=== PATIENT | female | born 1995 | race Hispanic/Latino ===

== ENCOUNTER 2019-09-13 02:08 | Emergency (ER) | payer SELFPAY ==
[~2019-09-13] VITALS: Ht 160 cm; Wt 102.1 kg
[~2019-09-13 02:08] MED LIST: BIRTH CONTROL; DIFLUNISAL500 MG PO; ORPHENADRINE C100 MG PO
[2019-09-13 03:49] LABS: BILIRUBIN,URINE NEGATIVE (NEGATIVE); CLARITY,URINE CLEAR (CLEAR); COLOR,URINE YELLOW (YELLOW); KETONES,URINE NEGATIVE (NEGATIVE); LEUKOCYTE ESTERASE ,URINE NEGATIVE (NEGATIVE); NITRITE,URINE NEGATIVE (NEGATIVE); PROTEIN,URINE DIPSTICK NEGATIVE (NEGATIVE); URINE UROBILINOGEN 0.2 mg/dL (0.2 - 1)
[2019-09-13 03:54] LABS: BACTERIA,URINE MODERATE /HPF
[2019-09-13 03:55] LABS: EPITHELIAL CELLS,URINE FEW /LPF
[2019-09-13 04:27] LABS: BASOPHILS % 0.4 % (0.0-1.0); EOSINOPHILS # (AUTO) 0.2 (0.0-0.4); EOSINOPHILS % 1.6 % (0.0-6.0); HEMATOCRIT 41.1 % (34.2-44.1); HEMOGLOBIN 13.5 g/dL (12.0-16.0); LYMPHOCYTES # (AUTO) 2.6 (1.0-3.2); LYMPHOCYTES % 23.8 % (18.0-39.1); MEAN CORPUSCULAR HEMOGLOBIN 28.2 pg (28-32); MEAN CORPUSCULAR HGB CONC 32.8 g/dL (31-35); MEAN CORPUSCULAR VOLUME 85.8 fL (81-99); MONOCYTES # (AUTO) 0.7 (0.2-0.8); MONOCYTES % 6.4 % (4.4-11.3); NEUTROPHILS # (AUTO) 7.4 (2.1-6.9); NEUTROPHILS % 67.6 % (38.7-80.0); PLATELET COUNT 305 x10e3/uL (140-360); RED BLOOD COUNT 4.79 x10e6/uL (3.6-5.1); RED CELL DISTRIBUTION WIDTH 13.2 % (11.7-14.4)
--- NOTE | 2019-09-13 04:29 | Diagnostic Imaging Report ---
EXAM: First Trimester Obstetric Pelvic Ultrasound INDICATION: ^RLQ PAIN EVAL FOR ECTOPIC ^[id number] ^0324 ^Y COMPARISON: None TECHNIQUE: Grayscale transverse and sagittal transvaginal images were obtained of the pelvis. CLINICAL HISTORY: 24 year old A0 Last menstrual period: 07/22/2019 Clinical gestational age: 7 weeks and 4 days FINDINGS: Uterus: Orientation: Normal Size: 7.2 x 3.9 x 5.1 cm, enlarged Mass: None Cervix: Normal Sac like structure within endometrium without yolk sac or pole. Measurements correspond to 5 weeks and 3 days gestational age. Right ovary Size: 3.3 x2 x 2.1 cm Mass/Cyst: None Left ovary Size: 2.7 x 1.9 x 2.1 cm Mass/Cyst: None Cul-de-sac: No free fluid IMPRESSION: Saclike structure within endometrium without yolk sac or pole to prove intrauterine . Therefore, differential remains early , ectopic , nonviable/anembryonic , and miscarriage. Recommend correlation with serial beta-hCG and short-term follow-up ultrasound. Signed by: Dr. Adriano Church MD on 09/13/2019 4:26 AM
[2019-09-13 05:02] LABS: ANION GAP 16.1 mmol/L (8-16); BLOOD UREA NITROGEN 12 mg/dL (7-26); BUN/CREATININE RATIO 17 (6-25); CALCIUM 9.7 mg/dL (8.4-10.2); CARBON DIOXIDE 20 mmol/L (22-29); CHLORIDE 103 mmol/L (98-107); CREATININE, SERUM 0.71 mg/dL (0.57-1.11); EST GLOMERULAR FILTRATION RATE > 60 ML/MIN (60-); GLUCOSE 104 mg/dL (74-118); POTASSIUM 3.1 mmol/L (3.5-5.1); SODIUM 136 mmol/L (136-145)
[2019-09-13 05:36] VITALS: BP 133/84
--- OUTSIDE RECORDS SUMMARY | 2019-09-16 13:03 | XMS REPORT ---
[facility] Address Unknown Phone Unavailable Care Team Providers Care Corporate Webmaster Name Role Phone Kirk CUMMINGS Unavailable Unavailable Problems This patient has no known problems. Allergies, Adverse Reactions, Alerts This patient has no known allergies or adverse reactions. Medications This patient has no known medications. Results Test Description Test Time Test Comments Text Results Atomic Results Result Comments US OB TRANSVAG TRI SINGLE 2019-09-13 04:21:00 [place] [address] Patient Name: PARMJIT BADILLO MR #: [id number] : 1995 Age/Sex: 24/F Req #: [id number] Adm Physician: Ordered by: CORNELIA CUMMINGS MD Report #: [id number] Location: ER Room/Bed: Procedure: [id number] US/US OB TRANSVAG TRI SINGLE Exam Date: 09/13/19 Exam Time: 323 REPORT STATUS: Signed EXAM: First Trimester Obstetric Pelvic Ultrasound INDICATION: RLQ PAIN EVAL FOR ECTOPIC [id number] 0324 Y COMPARISON: None TECHNIQUE: Grayscale transverse and sagittal transvaginal images were obtained of the pelvis. CLINICAL HISTORY: 24 year old A0 Last menstrual period: 07/22/2019 Clinical gestational age: 7 weeks and 4 days FINDINGS: Uterus: Orientation: Normal Size: 7.2 x 3.9 x 5.1 cm, enlarged Mass: None Cervix: Normal Sac like structure within endometrium without yolk sac or pole. Measurements correspond to 5 weeks and 3 days gestational age. Right ovary Size: 3.3 x2 x 2.1 cm Mass/Cyst: None Left ovary Size: 2.7 x 1.9 x 2.1 cm Mass/Cyst: None Cul-de-sac: No free fluid IMPRESSION: Saclike structure within endometrium without yolk sac or pole to prove intrauterine . Therefore, differential remains early , ectopic , nonviable/anembryonic , and miscarriage. Recommend correlation with serial beta-hCG and short-term follow- up ultrasound. Signed by: Dr. Adriano Carpio MD on 09/13/2019 4:26 AM Dictated By: ADRIANO CARPIO MD 5 Transcribed By: RIMA on 09/13/19425 COPY TO: CORNELIA CUMMINGS MD
== END 2019-09-13 05:52 | disposition home or self-care (01) ==
LOC: ER 02:08
DX: O20.9 Hemorrhage in early pregnancy, unspecified (principal); O20.0 Threatened abortion; O23.11 Infections of bladder in pregnancy, first trimester
CPT/HCPCS: 36415; 76817; 80048; 81001; 84702; 85025; 99283